=== PATIENT | male | born 1995 | race Caucasian/White ===

== ENCOUNTER 2025-05-04 01:38 | Observation (INO) | payer OTHER ==
[~2025-05-04] VITALS: Ht 182.9 cm; Wt 77.7 kg
[2025-05-04] VITALS (24 sets, daily range): BP systolic 103–150; BP diastolic 60–96
[~2025-05-04 01:38] MED LIST: ARIP10 PO; ARIP30 PO; CLON1 PO; FLUO20 PO; METF500 PO; POLY500 PO; PROP20 PO; [UNRECOGNIZED DRUG - SUPPLY]; [UNRECOGNIZED DRUG - SUPPLY]; glucometer strips
[2025-05-04] MEDS ORDERED: ACTIVATED CHARCOAL/SORBITOL 25 GM/120 ML BTL PO ONE (01:55)
[2025-05-04 02:23] LABS: BASOPHILS ABSOLUTE AUTO 0.01 K/mm3 (0.00-0.23); BASOPHILS PERCENT AUTO 0 % (0-2); EOSINOPHILS ABSOLUTE AUTO 0.02 K/mm3 (0.00-0.68); EOSINOPHILS PERCENT AUTO 0 % (0-6); Hematocrit 42.8 % (37.0-53.0); Hemoglobin 14.9 g/dL (13.5-17.5); IMMATURE GRAN ABSOLUTE AUTO 0.01 K/mm3 (0.00-0.10); IMMATURE GRAN PERCENT AUTO 0 % (0-1); LYMPHOCYTES ABSOLUTE AUTO 0.83 K/mm3 (0.84-5.20); LYMPHOCYTES PERCENT AUTO 12 % (21-46); MONOCYTES ABSOLUTE AUTO 0.62 K/mm3 (0.16-1.47); MONOCYTES PERCENT AUTO 9 % (4-13); Mean Corpuscular HGB Conc 34.8 g/dL (31.5-36.5); Mean Corpuscular Volume 87 fL (80-100); NEUTROPHILS ABSOLUTE AUTO 5.62 K/mm3 (1.96-9.15); NEUTROPHILS PERCENT AUTO 79 % (41-73); NRBC ABSOLUTE 0.00 K/mm3 (0.00-0.02); NRBC Auto 0.0 /100 WBC (0.0-0.2); Platelet Count 252 K/mm3 (150-400); RDW Coefficient Variation 12.9 % (11.7-14.2); RDW Standard Deviation 41.3 fL (35.1-46.3)
[2025-05-04] MEDS ORDERED: NS 1,000 ML IV SCH (02:30)
[2025-05-04 02:41] LABS: Alanine Aminotransfer (ALT/SGP 16.0 U/L (12-78); Albumin, Blood 3.8 g/dL (3.4-5.0); Albumin/Globulin Ratio 1.2 (0.8-1.8); Anion Gap 8.0 mmol/L (3-11); Aspartate Aminotrans (AST/SGOT 28.0 U/L (12-37); Bilirubin, Total 3.5 mg/dL (0.1-1.0); Blood Urea Nitrogen 12.0 mg/dL (8-24); CO2, Blood 26.0 mmol/L (21-32); Calcium, Blood 8.7 mg/dL (8.5-10.1); Chloride, Blood 104.0 mmol/L (98-108); Creatinine, Blood 0.89 mg/dL (0.60-1.20); Globulin, Blood 3.1 g/dL (2.2-4.0); Glucose, Blood 100.0 mg/dL (70-99); Potassium, Blood 4.2 mmol/L (3.5-5.5); Sodium, Blood 134.0 mmol/L (136-145); Total Protein, Blood 6.9 g/dL (6.4-8.2)
[2025-05-04] MEDS ORDERED: Naloxone HCl 0.4MG / ML 1ML Vial IV PRN (03:20)
[2025-05-04] MEDS ORDERED: FLU VACC TS2025-26(6MOS UP)/PF 45 MCG/0.5 ML SYRINGE IM SCH (03:20)
[2025-05-04] MEDS ORDERED: Ondansetron HCl 2 MG / ML 2ML Vial IV PRN (03:25)
[2025-05-04 04:44] LABS: Bilirubin, Direct 0.3 mg/dL (0.0-0.3); Bilirubin, Indirect 3.2 mg/dL (0.1-0.7); Magnesium, Blood 1.8 mg/dL (1.6-2.4)
--- NOTE | 2025-05-04 05:49 | NUR ---
ADMIT NOTE PT ARRIVES AT 0432 VIA GURNEY FROM ED AND SELF TRANSFERS ONTO ICU BED IN ROOM 10. PT IN NO APPARENT DISTRESS, ALERT AND ORIENTED TO ALL BUT HAS SOME DELUSIONS ABOUT KAMINSKI. PLEASANT AND COOPERATIVE. 98.4 F. MAEW. HR 93, SINUS RHYTHM, AND BP 118/77. PT DENIES CHEST PAIN. LUNG SOUNDS DIMINISHED. PT ADMITS TO SOB WITH EXERTION X 2 YEARS. SAT 97% ON RA. PT DENIES AB PAIN, N/V. PT HAS MANY TATTOOS. LEFT 18 GAUGE PIV IN LAC. SALINE LOCKED. WILL INITIATE PLAN OF CARE.
--- NOTE | 2025-05-04 06:33 | NUR ---
SHIFT SUMMARY SEE ADMIT NOTE. NO CHANGES. PT ATE TWO SANDWICHES. NO N/V, AB PAIN. VSS STILL STABLE. BEDSIDE SHIFT REPORT GIVEN TO DAY RN.
--- NOTE | 2025-05-04 08:50 | NUR ---
AM NOTE PT ALSEEP IN BED AT TIME OF BEDSIDE REPORT W/ NOC RN. PT A/OX4, ABLE TO MOVE ALL EXTREMITIES SPONTANEOUSLY, AND DENIES ANY PAIN/NUMBNESS/TINGLING. NSR ON MONITOR, MAPS>65, CAP REFILL,3 SEC, AND NO NOTED EDEMA. LUNG SOUNDS CLEAR AND DIM AT BASES, SATURATING >95% ON RA. ABD SOFT AND NONTENDER, BOWEL SOUNDS ACTIVE IN ALL QUADRANTS, PT TOLERATING MEALS W/O PAIN/NAUSEA. PT CONTINENT OF BOWEL AND BLADDER. SKIN INTACT AND W/O BREAKDOWN. ACCESS: LAC PIV POISON CONTROL CONFIRMED PLAN OF 24 HOURS OF OBSERVATION FROM TIME OF INGESTION, WHICH SHOULD END APPORXIMATELY AROUND 0100 05/05/2025. THEY ADVISED IF PT WERE TO NEED NARCAN, AN ADDITIONAL 4 HOUR OBSERVATION IS REQUIRED REGARDLESS OF 24 WINDOW.
[2025-05-04] MEDS ORDERED: Enoxaparin 40 MG/0.4 ML SYR SC SCH (09:00)
[2025-05-04 10:41] LABS: U Amphetamine Screen DETECTED; U Barbiturate Screen Not Detected; U Benzodiazapine Screen Not Detected; U Buprenorphine Screen Not Detected; U Cannabinoids Screen DETECTED; U Cocaine Screen Not Detected; U Methadone Screen Not Detected; U Methamphetamine Screen DETECTED; U Opiates Screen Not Detected; U Oxycodone Screen Not Detected; U Phencyclidine Screen Not Detected
--- NOTE | 2025-05-04 17:20 | NUR ---
PM NOTE PT ASSESSMENT UNCHANGED FROM AM NOTE. PT VSS T/O SHIFT, IS EASILY AROUSABLE TO VERBAL STIMULI, AND DENIES PAIN/NUMBNESS/NAUSEA. PT HAS BEEN ABLE TO AMBULATE IN ROOM W/O ISSUE, RN AT BEDSIDE TO HELP MANAGE CORDS. PT TOLERATING MEALS W/O DISCOMFORT. ACCESS: LAC PIV
--- NOTE | 2025-05-04 20:32 | NUR ---
ASSUMPTION OF CARE: ASSUMED CARE OF PT AT 1900, PT HAD A BM AND THEN BACK TO BED. PT REPORTS NEW FEET PAIN WHEN AMBULATING BUT DOESNT KNOW WHY AND WANTS TO REST THEM AT THIS TIME. FEET LOOK TO BE WNL AND HAVE GOOD CIRCULATION AND STRONG PULSES AND NO VISIBLE REDNESS OR SWELLING TO FEET/BLE'S. PT HAS PATENT LAC PIV THAT IS SALINE LOCKED AND COBAN WRAPPED. MONITOR READS NSR IN THE 90'S AND SBP 120'S. PT CURRENTLY ON RA AND MAINTAINING SATS >96%. PT A&OX4 AND REPORTS BEING IN THE ICU AND ABLE TO FOLLOW COMMANDS AND MAKE NEEDS KNOWN. CALL LIGHT IN REACH AND BED LOW AND LOCKED.
[2025-05-04] MEDS ORDERED: LORazepam 2 MG/ML 1ML Injection IV PRN (22:40)
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
[2025-05-05] VITALS (12 sets, daily range): BP systolic 97–124; BP diastolic 58–76
[2025-05-05 03:55] LABS: Alanine Aminotransfer (ALT/SGP 13.0 U/L (12-78); Albumin, Blood 3.7 g/dL (3.4-5.0); Albumin/Globulin Ratio 1.1 (0.8-1.8); Anion Gap 8.0 mmol/L (3-11); Aspartate Aminotrans (AST/SGOT 10.0 U/L (12-37); Bilirubin, Total 1.5 mg/dL (0.1-1.0); Blood Urea Nitrogen 11.0 mg/dL (8-24); CO2, Blood 25.0 mmol/L (21-32); Calcium, Blood 8.6 mg/dL (8.5-10.1); Chloride, Blood 106.0 mmol/L (98-108); Creatinine, Blood 0.73 mg/dL (0.60-1.20); Globulin, Blood 3.3 g/dL (2.2-4.0); Glucose, Blood 106.0 mg/dL (70-99); Potassium, Blood 3.9 mmol/L (3.5-5.5); Sodium, Blood 135.0 mmol/L (136-145); Total Protein, Blood 7.0 g/dL (6.4-8.2)
--- NOTE | 2025-05-05 05:31 | NUR ---
SHIFT SUMM: PT STARTED TO SHOW SIGNS OF ALCOHOL WITHDRAWL THIS SHIFT AND WAS MEDICATED PER EMAR. Q4 CIWAS ALSO INITIATED. PT CONTINUES TO BE A&0X4 AND ABLE TO MAKE NEEDS KNOWN. PATENT PIV TO LAC AND IND IN THE ROOM TO THE BATHROOM WITH SOME HELP MANAGING LINES. PT HAS EXPERIENCED LOOSE STOOLS THIS EVENING AND IMMODIUM WAS GIVEN. PT MAINTAINS SPO2> 96% ON RA AND SBP'S IN 120'S AND HR IN 70-80'S. CALL LIGHT IN REACH AND BED LOW AND LOCKED FOR SAFETY.
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
== END 2025-05-05 14:00 | disposition home or self-care (01) ==
LOC: ER 01:38 → ICUE 01:39
PROVIDERS: Emergency Medicine; Internal Medicine; ADMIT Student in an Organized Health Care Education/Training Program
DX: T40.412A Poisoning by fentanyl or fentanyl analogs, intentional self-harm, initial encounter (principal); F11.10 Opioid abuse, uncomplicated; F10.20 Alcohol dependence, uncomplicated; E11.9 Type 2 diabetes mellitus without complications; F32.A Depression, unspecified
CPT/HCPCS: 36415; 80053; 82247; 82248; 83735; 85025; 93005; 93010; 96360; 96361; 96372; 96374; 96376; 99285-25; A9270; G0378; J1650; J2060; J7030